=== PATIENT | female | born 1955 | race Caucasian/White ===

== ENCOUNTER 2016-08-20 04:14 | Inpatient (IN) ==
[2016-08-18 10:40] LABS: MANUAL DIFF NEEDED? NO; URINE MICRO REVIEW NEEDED? NO; URINE SOURCE CLEAN CATCH
[2016-08-18 11:19] LABS: BASO% 1.1 % (0.0-0.8); EOS# 0.32 X1000 (0.0-0.7); EOS% 3.8 % (0.0-10.0); HEMATOCRIT 47.3 % (37.0-47.0); HEMOGLOBIN 15.6 g/dL (12.0-16.0); IMM GRAN# 0.03 X1000 (0.0-0.04); IMM GRAN% 0.4 % (0.0-0.5); LYMPH# 2.32 X1000 (1.2-3.4); LYMPH% 27.3 % (20.5-51.1); MCH 29.2 PG (27-31); MCV 88.4 FL (81-99); MONO# 0.58 X1000 (0.11-0.59); MONO% 6.8 % (1.7-9.3); MPV 9.9 FL (7.4-10.4); NEUT% 60.6 % (42.2-75.2); PLT 363 X1000 (130-400); RBC 5.35 XMIL (4.2-5.4)
[2016-08-18 11:26] LABS: INR 0.92; PROTIME 9.6 Seconds (9.2-11.7); PTT 29.6 Seconds (22.0-36.0)
--- NOTE | 2016-08-18 11:38 | EKG Report ---
Test Performed on : 08/18/2016 10:20:35 AM Test Reason : PAT Blood Pressure : / mmHG Vent. Rate : 075 BPM Atrial Rate : 075 BPM P-R Int : 170 ms QRS Dur : 090 ms QT Int : 394 ms P-R-T Axes : 034 039 027 degrees QTc Int : 439 ms Normal sinus rhythm. Normal ECG When compared with ECG of 13-MAR-2010 16:47, premature ventricular complexes. are no longer present Confirmed by Александр KAYE, Carter Pringle ([id number]) on 08/20/2016 2:54:55 PM
[2016-08-18 11:43] LABS: BILIRUBIN URINE NEGATIVE (NEGATIVE); BLOOD URINE NEGATIVE (NEGATIVE); COLOR YELLOW; GLUCOSE URINE NEGATIVE (NEGATIVE); LEUKOCYTES URINE NEGATIVE (NEGATIVE); NITRITE URINE NEGATIVE (NEGATIVE); PH URINE 6.5; PROTEIN URINE NEGATIVE (NEGATIVE); SP GRAVITY URINE 1.009; TURBIDITY URINE CLEAR (CLEAR); UROBILINOGEN URINE NORMAL (NORMAL)
[2016-08-18 11:46] LABS: UR EPITHELIAL CELLS <10 /HPF (<10); URINE BACTERIA NEGATIVE /HPF; URINE RBC <10 /HPF (<10); URINE WBC <10 /HPF (<10)
[2016-08-18 11:49] LABS: AGAP 14; BUN 8 mg/dL (8-22); CALCIUM 9.5 mg/dL (8.8-10.2); CHLORIDE 98 mmol/L (98-107); COSMO 278; POTASSIUM 4.7 mmol/L (3.5-5.1); SODIUM 140 mmol/L (136-145); TCO2 28 mmol/L (25-35)
[2016-08-20] MEDS ORDERED: COLACE ONE (11:31)
[2016-08-20] MEDS ORDERED: PEPCID ONE (11:32)
[2016-08-20] MEDS ORDERED: CELEBREX ONE (11:32)
[2016-08-20] MEDS ORDERED: LYRICA ONE (11:32)
[2016-08-20] MEDS ORDERED: REGLAN ONE (11:32)
[2016-08-20] MEDS ORDERED: VANCOMYCIN 1 GM/NS 1 GM/250 ML IVPB ONE (11:33)
[2016-08-20] MEDS ORDERED: LR 1,000 ML ONE ×2 (11:33→17:34)
[2016-08-20] MEDS ORDERED: DIPRIVAN 1% ONE (14:04)
[2016-08-20] MEDS ORDERED: TORADOL ONE (14:08)
[2016-08-20] MEDS ORDERED: SODIUM CHLORIDE 0.9% ONE (14:08)
[2016-08-20] MEDS ORDERED: MARCAINE 0.25% PF/EPI 1:200,000 ONE (14:08)
[2016-08-20] MEDS ORDERED: CYKLOKAPRON 1,000 MG/NS 1,000 MG/100 ML IVPB ONE (14:08)
[2016-08-20] MEDS ORDERED: NEOSPORIN G.U. IRRIGANT ONE (14:09)
[2016-08-20] MEDS ORDERED: EXPAREL 1.3% ONE (14:09)
[2016-08-20] MEDS ORDERED: OFIRMEV 1000 MG/ISOTONIC SOLN 0 MG/0 ML BOTTLE ONE (15:09)
[2016-08-20] MEDS ORDERED: DECADRON ONE ×2 (15:09→15:11)
[2016-08-20] MEDS ORDERED: OFIRMEV 1000 MG/ISOTONIC SOLN 1,000 MG/100 ML BOTTLE ONE (15:11)
[2016-08-20] MEDS ORDERED: ROBINUL ONE ×2 (15:11→16:19)
[2016-08-20] MEDS ORDERED: ZEMURON ONE (15:14)
[2016-08-20] MEDS ORDERED: FENTANYL ONE (15:14)
[2016-08-20] MEDS ORDERED: ZOFRAN ONE (15:30)
[2016-08-20] MEDS ORDERED: LABETALOL ONE (15:32)
[2016-08-20 15:59] LABS: URINE MICRO REVIEW NEEDED? NO; URINE SOURCE CATH
[2016-08-20 16:08] LABS: BILIRUBIN URINE NEGATIVE (NEGATIVE); BLOOD URINE NEGATIVE (NEGATIVE); COLOR YELLOW; GLUCOSE URINE NEGATIVE (NEGATIVE); LEUKOCYTES URINE NEGATIVE (NEGATIVE); NITRITE URINE NEGATIVE (NEGATIVE); PH URINE 5.5; PROTEIN URINE NEGATIVE (NEGATIVE); SP GRAVITY URINE 1.017; TURBIDITY URINE CLEAR (CLEAR); UR EPITHELIAL CELLS <10 /HPF (<10); URINE BACTERIA NEGATIVE /HPF; URINE RBC <10 /HPF (<10); URINE WBC <10 /HPF (<10); UROBILINOGEN URINE NORMAL (NORMAL)
[2016-08-20] MEDS ORDERED: NEOSTIGMINE ONE (16:19)
[2016-08-20] MEDS ORDERED: NS 1,000 ML IV SCH (17:15)
[2016-08-20] MEDS: MORPHINE ONE ×3 (17:32→17:47)
[2016-08-20] MEDS ORDERED: NS 1,000 ML ONE (17:32)
[2016-08-20] MEDS ORDERED: MORPHINE IV PRN (18:42)
[2016-08-20] MEDS ORDERED: MILK OF MAGNESIA PO PRN (18:42)
[2016-08-20] MEDS ORDERED: ZOFRAN IV PRN (18:42)
[2016-08-20] MEDS ORDERED: AMBIEN PO PRN (18:42)
[2016-08-20] MEDS ORDERED: CYKLOKAPRON 1,000 MG in NS 100 ML IV ONE (21:00)
[2016-08-20] MEDS ORDERED: FLURBIPROFEN 100 MG PO SCH (21:00)
[2016-08-20] MEDS: PERIDEX MT SCH (21:11)
[2016-08-20] MEDS: CELEBREX PO SCH (21:11)
[2016-08-20] MEDS: LYRICA PO SCH (21:12)
[2016-08-20] MEDS: COLACE PO SCH (21:12)
[2016-08-20] MEDS: TYLENOL PO SCH (21:13)
[2016-08-20] MEDS: ULTRAM PO SCH (21:13)
[2016-08-20] MEDS: ZANAFLEX PO SCH (21:13)
--- NOTE | 2016-08-20 21:56 | OPERATIVE NOTE ---
PROCEDURE DATE: 08/20/2016 PREOPERATIVE DIAGNOSIS: Left hip degenerative joint disease. POSTOPERATIVE DIAGNOSIS: Left hip degenerative joint disease. PROCEDURE PERFORMED: Left anterior total hip arthroplasty using [facility] size 9 high- offset stem with a +4, 36 mm head and a 54 mm hemispherical shell with a 36 mm inside diameter acetabular liner. SURGEON: Efra Michaels MD CONSTRUCTION SUPERVISOR/CARPENTER: Alysia. ANESTHESIA: Spinal. COMPLICATIONS: None. BLOOD LOSS: Minimal. DRAIN: Hemovac x1. DESCRIPTION OF PROCEDURE: The patient was brought to the operative suite and placed in supine position. After successful administration of spinal anesthesia, the patient was placed on the OSI table in the usual position for the left hip. The left hip was then prepped and draped in the usual sterile fashion. A longitudinal incision was made beginning 2 cm distal and 2 cm lateral to the anterior superior iliac spine, extending distally and slightly laterally 8 cm. It was dissected sharply through the skin and subcutaneous tissue down to the tensor fascia. The tensor fascia was incised and dissected bluntly down to the deep tensor fascia. The deep tensor fascia was incised and the circumflex vessels electrocauterized. The rectus muscle was elevated off the anterior aspect of the capsule, exposing the anterior capsule. A T-capsulotomy was performed and then the femoral neck cut was made. The femoral head was removed with a power corkscrew. The labrum was resected. The acetabulum was serially reamed to 54 to accept a 54 hemispherical shell. The shell was then driven into place in the proper amount of inclination and anteversion and then the acetabular liner was locked onto the shell once it was verified to be in good position. Attention was then directed to the femur. It was externally rotated, extended, adducted, and elevated out of the wound with the hook on the OSI bed. The lateral neck was rongeured. The canal was serially broached to a size 9. A size 9 high-offset, +4, 36 mm head was trialed and found be excellent leg length, offset, and stability of the hip. The trial was removed. The definitive stem was seated on the femur and then the ceramic 36 mm head was locked onto the [place] taper. Once this was completed, the hip was again reduced. It was again found to be in excellent position. The hip was copiously infiltrated with Exparel, including the posterior capsule, anterior capsule, anterior musculature, and subcutaneous tissue. The anterior capsule was repaired with 0 V-Loc suture. A drain was placed deep to the tensor fascia and buried around the stem and then the tensor fascia was closed with a running 0 V-Loc suture. The skin edge was approximated with 2-0 Vicryl. The skin was closed with Monocryl and Prineo. A sterile dressing was applied. The patient tolerated the procedure well without complication. At the end of the procedure, all counts were correct x2. The patient was transferred to the recovery room in stable condition. cc: Efra Michaels MD
[2016-08-21] MEDS ORDERED: VANCOMYCIN 1 GM/NS 1 GM/250 ML IVPB IV ONE (02:00)
[2016-08-21] MEDS: TYLENOL PO SCH ×2 (02:09→09:30)
[2016-08-21] MEDS: ULTRAM PO SCH ×2 (02:09→09:36)
[2016-08-21] MEDS: OXY IR PO PRN ×2 (04:37→09:31)
[2016-08-21] MEDS ORDERED: XARELTO PO SCH (06:00)
[2016-08-21 06:24] LABS: AGAP 9; BUN 10 mg/dL (8-22); CALCIUM 8.1 mg/dL (8.8-10.2); CHLORIDE 100 mmol/L (98-107); COSMO 271; POTASSIUM 4.8 mmol/L (3.5-5.1); SODIUM 135 mmol/L (136-145); TCO2 26 mmol/L (25-35)
[2016-08-21 07:14] LABS: HEMATOCRIT 38.3 % (37.0-47.0); HEMOGLOBIN 12.3 g/dL (12.0-16.0)
[2016-08-21 07:55] VITALS: BP 121/68
[2016-08-21] MEDS ORDERED: CELEXA PO SCH (09:00)
[2016-08-21] MEDS ORDERED: CALTRATE 600 + D PO SCH (09:00)
[2016-08-21] MEDS ORDERED: DECADRON IV SCH (09:00)
[2016-08-21] MEDS ORDERED: FLONASE NAS SCH (09:00)
[2016-08-21] MEDS ORDERED: PEPCID PO SCH (09:00)
[2016-08-21] MEDS: CELEBREX PO SCH (09:29)
[2016-08-21] MEDS: COLACE PO SCH (09:29)
[2016-08-21] MEDS: LYRICA PO SCH (09:29)
[2016-08-21] MEDS: PERIDEX MT SCH (09:30)
[2016-08-21] MEDS: ZANAFLEX PO SCH (09:31)
--- NOTE | 2016-08-21 13:04 | DISCHARGE SUMMARY ---
ADMISSION DATE: 08/20/2016 DISCHARGE DATE: 08/21/2016 DISCHARGE DIAGNOSIS: Left hip degenerative joint disease status post left total hip arthroplasty. DISCHARGE MEDICATIONS: See discharge medication list. DISPOSITION: The patient is discharged home with home health. DISCHARGE INSTRUCTIONS: Total hip arthroplasty protocol. Instructed to return to see Dr. Michaels next Thursday. HOSPITAL COURSE: On the day of admission, patient underwent a left total hip arthroplasty. Her postoperative course was unremarkable. At discharge, she is afebrile. Tolerating regular diet. Her hemoglobin was 12.3, and her hematocrit is 38.3. She had 140 mL of drainage from her Hemovac. She has not been seen by PT, yet. She will be discharged home with home health after she sees PT this morning. Dictated by TONE Cuenca for Efra Michaels MD cc: TONE Cuenca MD
== END 2016-08-21 12:20 | disposition home health service (06) ==
LOC: SURHOLD 04:14 → 4N 16:14
PROVIDERS: ADMIT Orthopaedic Surgery; ATTEND Orthopaedic Surgery